=== PATIENT | male | born 1985 | race African-American/Black ===

== ENCOUNTER 2016-11-12 14:38 | Emergency (ER) | payer MEDICARE, OTHER ==
[~2016-11-12] VITALS: Ht 170.2 cm; Wt 88.0 kg
[~2016-11-12 14:38] MED LIST: GEOD20CA PO; HALO10 PO; VIST50CA PO
[2016-11-12 14:40] VITALS: BP 145/80; PULSE 95; TEMP 98.7; O2SAT 98
[2016-11-12 14:58] VITALS: RESP 20
[2016-11-12] MEDS ORDERED: ZYPR20TA PO (16:01)
[2016-11-12] MEDS ORDERED: PROP20TA3 PO (16:01)
[2016-11-12] MEDS ORDERED: HYDR50TA94 PO (16:01)
--- NOTE | 2016-11-12 16:13 | PD ---
HPI Chief Complaint: GI Complaint Time Seen by Provider: 16:12 Travel History International Travel<30 days: No Contact w/Intl Traveler<30days: No Traveled to known affect area: No History of Present Illness HPI 31-year-old male presents to the emergency department for evaluation of blood noted in his stool. This has happened 2 times. Otherwise his stool is brown. He has had some abdominal cramping, it was more severe yesterday but he is not currently having any. He has followed up with his primary care provider who ordered lab work yesterday and a stool sample today. The patient states he has submitted all of this and is just waiting on his results. States that he has had anal sex but not recently. Denies any rectal pain. Denies any fever or chills. Denies any nausea or vomiting. He has no other symptoms to report. PFSH Past Medical History Anxiety: Yes Depression: Yes Diminished Hearing: No Psychiatric: Yes Immunizations Current: Yes Schizophrenia: Yes (paranoid) Social History Alcohol Use: Yes (occassional ) Tobacco Use: No Substance Use: Yes (marijuana) Allergies-Medications (Allergen,Severity, Reaction): Coded Allergies: *MDRO Multi-Drug Resistant Organism (Verified Allergy, Unknown, 09/26/15) MRSA Reported Meds & Prescriptions Reported Meds & Active Scripts Active Bentyl (Dicyclomine HCl) 10 Mg Cap 10 Mg PO TID PRN Reported Propranolol (Propranolol HCl) 20 Mg Tab 20 Mg PO BID Zyprexa (Olanzapine) 20 Mg Tab 20 Mg PO HS Hydroxyzine HCl 50 Mg Tab 100 Mg PO HS Review of Systems Except as stated in HPI: all other systems reviewed are Neg Physical Exam Narrative GENERAL: Well-nourished male patient in no acute distress SKIN: Focused skin assessment warm/dry. HEAD: Atraumatic. Normocephalic. EYES: Pupils equal and round. No scleral icterus. No injection or drainage. ENT: No nasal bleeding or discharge. Mucous membranes pink and moist. NECK: Trachea midline. No JVD. CARDIOVASCULAR: Regular rate and rhythm. No murmur appreciated. RESPIRATORY: No accessory muscle use. Clear to auscultation. Breath sounds equal bilaterally. GASTROINTESTINAL: Abdomen soft, non-tender, nondistended. Hepatic and splenic margins not palpable. RECTAL EXAM: No masses or tenderness, stool is brown. Patient does have an external hemorrhoidal skin tag MUSCULOSKELETAL: No obvious deformities. No clubbing. No cyanosis. No edema. NEUROLOGICAL: Awake and alert. No obvious cranial nerve deficits. Motor grossly within normal limits. Normal speech. PSYCHIATRIC: Appropriate mood and affect; insight and judgment normal. Data Data Last Documented VS Vital Signs Date Time Temp Pulse Resp B/P Pulse Ox O2 Delivery O2 Flow Rate FiO2 11/12/16 14:58 20 11/12/16 14:40 98.7 95 145/80 98 MDM Medical Decision Making Medical Screen Exam Complete: Yes Emergency Medical Condition: Yes Medical Record Reviewed: Yes Differential Diagnosis Hemorrhoidal bleeding versus fissure versus fistula versus colitis versus diverticulitis Narrative Course 31-year-old male presents per department for evaluation. Patient appears without distress. He reports abdominal cramping and 2 episodes of blood in his stool. He has already seen in been evaluated by his primary care provider with lab work sent today as well as a stool sample. Patient does not have acute worsening in symptoms or any acute complaints that would render further emergent workup. I discussed the patient with my attending physician who agrees with this. Patient does not have a positive Hemoccult test and rectal exam as well as abdominal exam benign, except for a hemorrhoidal skin tag. Patient is encouraged to continue follow-up with his primary care provider and see gastroenterology evaluation. He agrees to return immediately with any acute worsening of symptoms. [facility] Point of Care Internal Pos. & Neg. Controls: Passed Fecal Specimen Occult Blood: Negative Diagnosis Primary Impression: Abdominal cramping Additional Impression: Hemorrhoidal skin tag Referrals: Coroner Transport Technician Primary Care Physician Patient Instructions: General Instructions, Hemorrhoids (ED) Additional Instructions: Continue follow-up with your primary care provider Outpatient colonoscopy may be warranted Seek gastroenterology evaluation Return immediately with any acute worsening of symptoms Med/Other Pt SpecificInfo: Prescription(s) given Scripts Dicyclomine (Bentyl)10 Mg Cap10 Mg PO TID PRN (Bowel Management) #15 CAP Ref 0 Prov:Susan Ulloa 11/12/16 Disposition: 01 DISCHARGE HOME Condition: Stable Susan Ulloa Nov 12, 2016 16:12
[2016-11-12] MEDS ORDERED: DICY10 PO (16:27)
== END 2016-11-12 16:47 | disposition home or self-care (01) ==
LOC: NEPD 14:38
DX: R10.9 Unspecified abdominal pain (principal); K64.4 Residual hemorrhoidal skin tags; F41.9 Anxiety disorder, unspecified; F32.9 Major depressive disorder, single episode, unspecified; F20.0 Paranoid schizophrenia
CPT/HCPCS: 99283

== ENCOUNTER 2017-07-12 11:17 | Observation (INO) | payer MEDICARE, OTHER ==
[~2017-07-12] VITALS: Ht 170.2 cm; Wt 82.0 kg
[2017-07-12] VITALS (7 sets, daily range): BP systolic 131–145; BP diastolic 63–87; PULSE 77–92; RESP 16–18; TEMP 97.7–99.1; O2SAT 95–99
[~2017-07-12 11:17] MED LIST changes: +DICY10 PO; -GEOD20CA PO; -HALO10 PO; +HYDR50TA94 PO; +PROP20TA3 PO; -VIST50CA PO; +ZYPR20TA PO
--- NOTE | 2017-07-12 11:36 | PD ---
HPI Chief Complaint: Musculoskeletal Complaint Time Seen by Provider: 11:24 Travel History International Travel<30 days: No Contact w/Intl Traveler<30days: No Traveled to known affect area: No History of Present Illness HPI Patient is a 32-year-old male presenting to emerge from for evaluation of left anterior chest pain. Patient states been on and off for 1 year. Pain occurs mostly at rest when he is sleeping or resting. He states that the pain is a 5 out of 10 and reports it is sore. He denies any accompanying shortness of breath, dizziness, diaphoresis, radiation. He does have occasional pain in the left upper back when the chest pain occurs. Symptom onset is gradual, symptom severity is mild. There are no alleviating or exacerbating factors. Patient has discussed this with his primary doctor and was told it was a muscle issue likely related to sleeping. Patient reports that he smokes occasional marijuana , denies any other illicit drug use. He has a history of paranoid schizophrenia , he is not currently on any medications. PFSH Past Medical History Anxiety: Yes Depression: Yes Diminished Hearing: No Immunizations Current: Yes Schizophrenia: Yes (paranoid) Social History Alcohol Use: No ( ) Tobacco Use: No Substance Use: Yes (marijuana) Allergies-Medications (Allergen,Severity, Reaction): Coded Allergies: *MDRO Multi-Drug Resistant Organism (Verified Allergy, Unknown, 09/26/15) MRSA Reported Meds & Prescriptions Reported Meds & Active Scripts Active Review of Systems Except as stated in HPI: all other systems reviewed are Neg General / Constitutional: No: Fever HENT: No: Headaches, Lightheadedness Cardiovascular: Positive: Chest Pain or Discomfort, No: Palpitations, Tachycardia, Diaphoresis, Dyspnea on exertion, Edema Respiratory: No: Shortness of Breath Gastrointestinal: No: Nausea Musculoskeletal: Positive: Myalgias Neurologic: No: Weakness, Dizziness Physical Exam Narrative GENERAL: Well-developed, well-nourished, alert -Emirati male. Presenting in no acute distress. SKIN: Warm and dry. HEAD: Atraumatic. Normocephalic. EYES: Pupils equal and round. No scleral icterus. No injection or drainage. ENT: No nasal bleeding or discharge. Mucous membranes pink and moist. NECK: Trachea midline. No JVD. CARDIOVASCULAR: Regular rate and rhythm. RESPIRATORY: No accessory muscle use. Clear to auscultation. Breath sounds equal bilaterally. GASTROINTESTINAL: Abdomen soft, non-tender, nondistended. Hepatic and splenic margins not palpable. MUSCULOSKELETAL: Extremities without clubbing, cyanosis, or edema. No obvious deformities. NEUROLOGICAL: Awake and alert. No obvious cranial nerve deficits. Motor grossly within normal limits. Five out of 5 muscle strength in the arms and legs. Normal speech. PSYCHIATRIC: Appropriate mood and affect; insight and judgment normal. Data Data Last Documented VS Vital Signs Date Time Temp Pulse Resp B/P (MAP) Pulse Ox O2 Delivery O2 Flow Rate FiO2 07/12/17 11:21 99.1 92 16 145/85 (105) 98 Orders Orders Electrocardiogram (07/12/17 11:31) Ckmb (Isoenzyme) Profile (07/12/17 11:31) Complete Blood Count With Diff (07/12/17 11:31) Comprehensive Metabolic Panel (07/12/17 11:31) Magnesium (Mg) (07/12/17 11:31) Prothrombin Time / Inr (Pt) (07/12/17 11:31) Act Partial Throm Time (Ptt) (07/12/17 11:31) Troponin I (07/12/17 11:31) Lipase (07/12/17 11:31) Chest, Single Ap (07/12/17 11:31) Ecg Monitoring (07/12/17 11:31) Iv Access Insert/Monitor (07/12/17 11:31) Oximetry (07/12/17 11:31) Sodium Chloride 0.9% Flush (Ns Flush) (07/12/17 11:45) CKMB (07/12/17 11:45) CKMB% (07/12/17 11:45) Admit Order (Ed Use Only) (07/12/17 13:21) Labs Laboratory Tests Test 07/12/17 11:45 White Blood Count 7.2 TH/MM3 Red Blood Count 5.16 MIL/MM3 Hemoglobin 15.5 GM/DL Hematocrit 45.2 % Mean Corpuscular Volume 87.6 FL Mean Corpuscular Hemoglobin 30.0 PG Mean Corpuscular Hemoglobin Concent 34.2 % Red Cell Distribution Width 13.7 % Platelet Count 213 TH/MM3 Mean Platelet Volume 8.3 FL Neutrophils (%) (Auto) 48.8 % Lymphocytes (%) (Auto) 42.4 % Monocytes (%) (Auto) 7.3 % Eosinophils (%) (Auto) 1.0 % Basophils (%) (Auto) 0.5 % Neutrophils # (Auto) 3.5 TH/MM3 Lymphocytes # (Auto) 3.0 TH/MM3 Monocytes # (Auto) 0.5 TH/MM3 Eosinophils # (Auto) 0.1 TH/MM3 Basophils # (Auto) 0.0 TH/MM3 CBC Comment DIFF FINAL Differential Comment Prothrombin Time 10.9 SEC Prothromb Time International Ratio 1.1 RATIO Activated Partial Thromboplast Time 28.2 SEC Blood Urea Nitrogen 10 MG/DL Creatinine 0.98 MG/DL Random Glucose 83 MG/DL Total Protein 8.4 GM/DL Albumin 4.1 GM/DL Calcium Level 9.6 MG/DL Magnesium Level 2.3 MG/DL Alkaline Phosphatase 115 U/L Aspartate Amino Transf (AST/SGOT) 19 U/L Alanine Aminotransferase (ALT/SGPT) 46 U/L Total Bilirubin 0.5 MG/DL Sodium Level 139 MEQ/L Potassium Level 4.3 MEQ/L Chloride Level 104 MEQ/L Carbon Dioxide Level 27.1 MEQ/L Anion Gap 8 MEQ/L Estimat Glomerular Filtration Rate 106 ML/MIN Total Creatine Kinase 347 U/L Creatine Kinase MB 1.4 NG/ML Creatine Kinase MB % 0.4 % Troponin I LESS THAN 0.02 NG/ML Lipase 81 U/L MDM Medical Decision Making Medical Screen Exam Complete: Yes Emergency Medical Condition: Yes Medical Record Reviewed: Yes Interpretation(s) Last Impressions Chest X-Ray 07/12/17 1131 Signed Impressions: Service Date/Time: Wednesday, July 12, 2017 11:36 - CONCLUSION: Normal examination. Eula Anderson MD Laboratory Tests Test 07/12/17 11:45 White Blood Count 7.2 TH/MM3 Red Blood Count 5.16 MIL/MM3 Hemoglobin 15.5 GM/DL Hematocrit 45.2 % Mean Corpuscular Volume 87.6 FL Mean Corpuscular Hemoglobin 30.0 PG Mean Corpuscular Hemoglobin Concent 34.2 % Red Cell Distribution Width 13.7 % Platelet Count 213 TH/MM3 Mean Platelet Volume 8.3 FL Neutrophils (%) (Auto) 48.8 % Lymphocytes (%) (Auto) 42.4 % Monocytes (%) (Auto) 7.3 % Eosinophils (%) (Auto) 1.0 % Basophils (%) (Auto) 0.5 % Neutrophils # (Auto) 3.5 TH/MM3 Lymphocytes # (Auto) 3.0 TH/MM3 Monocytes # (Auto) 0.5 TH/MM3 Eosinophils # (Auto) 0.1 TH/MM3 Basophils # (Auto) 0.0 TH/MM3 CBC Comment DIFF FINAL Differential Comment Prothrombin Time 10.9 SEC Prothromb Time International Ratio 1.1 RATIO Activated Partial Thromboplast Time 28.2 SEC Blood Urea Nitrogen 10 MG/DL Creatinine 0.98 MG/DL Random Glucose 83 MG/DL Total Protein 8.4 GM/DL Albumin 4.1 GM/DL Calcium Level 9.6 MG/DL Magnesium Level 2.3 MG/DL Alkaline Phosphatase 115 U/L Aspartate Amino Transf (AST/SGOT) 19 U/L Alanine Aminotransferase (ALT/SGPT) 46 U/L Total Bilirubin 0.5 MG/DL Sodium Level 139 MEQ/L Potassium Level 4.3 MEQ/L Chloride Level 104 MEQ/L Carbon Dioxide Level 27.1 MEQ/L Anion Gap 8 MEQ/L Estimat Glomerular Filtration Rate 106 ML/MIN Total Creatine Kinase 347 U/L Creatine Kinase MB 1.4 NG/ML Creatine Kinase MB % 0.4 % Troponin I LESS THAN 0.02 NG/ML Lipase 81 U/L Vital Signs Date Time Temp Pulse Resp B/P (MAP) Pulse Ox O2 Delivery O2 Flow Rate FiO2 07/12/17 11:21 99.1 92 16 145/85 (105) 98 Differential Diagnosis ACS versus [place] versus chest wall pain versus costochondritis versus radiculopathy versus other Narrative Course Patient is a well-appearing 32-year-old male presenting for evaluation of left anterior chest wall pain that has been intermittent for the last year. Patient' s vital signs are stable, labs and imaging ordered and pending. IV access established, patient placed on telemetry monitoring continuous pulse oximetry. EKG shows normal sinus rhythm with J-point elevation. This was reviewed by my attending physician. Labs reviewed CK slightly elevated otherwise no acute abnormalities. Discussed with my attending, patient will be placed in REPRODUCTION ARTIST for obs. Pt agreeable. Orders placed. Pt resting comfortably. Diagnosis Primary Impression: Chest pain Qualified Codes: R07.9 - Chest pain, unspecified Admitting Information Admitting Physician Requests: Observation Condition: Stable Lynn Rice Jul 12, 2017 11:36
[2017-07-12] MEDS ORDERED: SODIUM CHLORIDE 0.9% FLUSH 10 ML FLUSH IVF PRN (11:45)
--- NOTE | 2017-07-12 11:56 | RADRPT ---
EXAM DATE/TIME: 07/12/2017 11:36 [facility] COMPARISON: No previous studies available for comparison. INDICATIONS : Left sided chest pain. MEDICAL HISTORY : Heart murmur. SURGICAL HISTORY : None. ENCOUNTER: Initial ACUITY: >1 year PAIN SCORE: 4/10 LOCATION: Left chest FINDINGS: A single view of the chest demonstrates the lungs to be symmetrically aerated without evidence of mas s, infiltrate or effusion. The cardiomediastinal contours are unremarkable. Osseous structures are intact. CONCLUSION: Normal examination. Eula Anderson MD on July 12, 2017 at 11:54 Board Certified Radiologist. This report was verified electronically.
[2017-07-12 12:34] LABS: AUTOMATED NEUTROPHIL # 3.5 TH/MM3 (1.8-7.7); BASOPHIL % 0.5 % (0.0-2.0); EOSINOPHIL # 0.1 TH/MM3 (0-0.4); HEMATOCRIT 45.2 % (39.0-51.0); HEMOGLOBIN 15.5 GM/DL (13.0-17.0); LYMPH % 42.4 % (9.0-44.0); MEAN CELL VOLUME 87.6 FL (80.0-100.0); MEAN CORPUSCULAR HGB CONC 34.2 % (32.0-36.0); MEAN PLATELET VOLUME 8.3 FL (7.0-11.0); MONO % 7.3 % (0.0-8.0); MONOCYTE # 0.5 TH/MM3 (0-0.9); NEUT % 48.8 % (16.0-70.0); PLATELET COUNT 213 TH/MM3 (150-450); RED BLOOD COUNT 5.16 MIL/MM3 (4.50-5.90); RED CELL DISTRIBUTION WIDTH 13.7 % (11.6-17.2); WHITE BLOOD COUNT 7.2 TH/MM3 (4.0-11.0)
[2017-07-12 12:42] LABS: INTERNATIONAL NORMALIZED RATIO 1.1 RATIO; PROTHROMBIN TIME - PATIENT 10.9 SEC (9.8-11.6)
[2017-07-12 12:57] LABS: ALBUMIN 4.1 GM/DL (3.4-5.0); ALT (GPT) 46 U/L (12-78); BICARBONATE 27.1 MEQ/L (21.0-32.0); BLOOD UREA NITROGEN 10 MG/DL (7-18); CALCIUM 9.6 MG/DL (8.5-10.1); CHLORIDE 104 MEQ/L (98-107); CREATININE 0.98 MG/DL (0.60-1.30); GLOMERULAR FILTRATION RATE 106 ML/MIN (>89); GLUCOSE,RANDOM 83 MG/DL (74-106); MAGNESIUM 2.3 MG/DL (1.5-2.5); SODIUM (NA) 139 MEQ/L (136-145)
[2017-07-12 13:02] LABS: ALKALINE PHOSPHATASE 115 U/L (45-117); AST (GOT) 19 U/L (15-37); TOTAL BILIRUBIN ADULT 0.5 MG/DL (0.2-1.0); TOTAL PROTEIN 8.4 GM/DL (6.4-8.2); TROPONIN I LESS THAN 0.02 NG/ML (0.02-0.05)
[2017-07-12] MEDS ORDERED: ACETAMINOPHEN/HYDROcodone 325 MG/7.5 MG TAB PO PRN (15:00)
[2017-07-12] MEDS ORDERED: ONDANSETRON HCL 4 MG/2 ML VIAL IV PUSH PRN (15:00)
[2017-07-12] MEDS ORDERED: ACETAMINOPHEN 500 MG CPLT PO PRN (15:00)
--- NOTE | 2017-07-12 15:14 | HHI.HP ---
HPI Primary Care Physician Unknown Chief Complaint Chest pain History of Present Illness This is a 32-year-old male that presents to ED via private vehicle with complaint of intermittent left-sided chest discomfort for greater than a year. States he has on average 1-2 times a month. Describes it as a soreness but on the inside of his chest. When it occurs will usually last a couple days. Found nothing in particular to bring on the discomfort. Nothing seems to worsen or improve it when he has it. Denies recent illnesses. Denies fevers or chills. Has history of schizophrenia but states he has not taken meds for 6 months. Denies hallucinations. Denies suicidal or homicidal thoughts. Review of Systems General: Patient denies fevers, chills, and recent travel. HEENT: Patient denies headache, sore throat, difficulty swallowing. Cardiovascular: Has the chest discomfort as mentioned above. Denies sensation of heart beating rapidly or irregularly. No syncope. Denies diaphoresis. Respiratory: Denies shortness of breath or inspirational chest discomfort. Denies coughing wheezing or hemoptysis. GI: Patient denies nausea, vomiting, diarrhea, abdominal pain, bloody stools. Musculoskeletal: Patient denies joint pain or edema. Denies calf pain or edema. Neurovascular: Patient denies numbness, tingling, weakness in extremities. Denies headache. Endocrine: Denies polyuria and polydipsia. Hematologic: Denies easy bruising. Skin: Denies rash or itching. Past Family Social History Allergies: Coded Allergies: *MDRO Multi-Drug Resistant Organism (Verified Allergy, Unknown, 09/26/15) MRSA Past Medical History Schizophrenia. Denies hypertension, hyperlipidemia, diabetes, and known CAD. Cigar abuse with marijuana. Past Surgical History Denies. Reported Medications Reported Meds & Active Scripts Active Active Ordered Medications Current Medications Medications (Trade) Dose Ordered Sig/Elena Route Start Time Stop Time Status Last Admin (NS Flush) 2 ml UNSCH PRN IVF 07/12/17 11:45 (Tylenol) 500 mg Q4H PRN PO 07/12/17 15:00 ([place] 7.5-325 Mg) 1 tab Q4H PRN PO 07/12/17 15:00 (Zofran Inj) 4 mg Q6H PRN IV PUSH 07/12/17 15:00 (Aspirin) 325 mg DAILY PO 07/13/17 09:00 Family History Patient is adopted. Social History Smokes 2-3 cigars laced with marijuana 2-3 times a week. Denies alcohol. Denies other illicit drug use. Physical Exam Vital Signs Vital Signs Date Time Temp Pulse Resp B/P (MAP) Pulse Ox O2 Delivery O2 Flow Rate FiO2 07/12/17 14:34 98.2 77 17 144/87 (106) 95 07/12/17 14:07 72 18 131/78 (95) 99 07/12/17 11:21 99.1 92 16 145/85 (105) 98 Physical Exam GENERAL: This is a well-nourished, well-developed patient, in no apparent distress. Patient speaks in clear complete sentences. Patient is pleasant. HEENT: Head is atraumatic and normocephalic. Neck is supple without lymphadenopathy and trachea is midline. No JVD or carotid bruits. CARDIOVASCULAR: Regular rate and rhythm without murmurs, gallops, or rubs. RESPIRATORY: Clear to auscultation. Breath sounds equal bilaterally. No wheezes , rales, or rhonchi. Left chest wall is tender. No use of accessory muscles. GASTROINTESTINAL: Abdomen is nontender, nondistended. Abdomen soft. No obvious pulsatile mass or bruit. No CVA tenderness. Strong femoral pulses bilaterally. Normal bowel sounds in all quadrants. MUSCULOSKELETAL: Patient is moving upper and lower extremities freely. No calf tenderness or edema, no Homans sign. Strong pulses in upper and lower extremities. NEUROLOGICAL: Patient is alert and oriented. Cranial nerves 2-12 are grossly intact. No focal deficits and speech is clear. SKIN: No rash and turgor is normal. Laboratory Laboratory Tests Test 07/12/17 11:45 White Blood Count 7.2 Red Blood Count 5.16 Hemoglobin 15.5 Hematocrit 45.2 Mean Corpuscular Volume 87.6 Mean Corpuscular Hemoglobin 30.0 Mean Corpuscular Hemoglobin Concent 34.2 Red Cell Distribution Width 13.7 Platelet Count 213 Mean Platelet Volume 8.3 Neutrophils (%) (Auto) 48.8 Lymphocytes (%) (Auto) 42.4 Monocytes (%) (Auto) 7.3 Eosinophils (%) (Auto) 1.0 Basophils (%) (Auto) 0.5 Neutrophils # (Auto) 3.5 Lymphocytes # (Auto) 3.0 Monocytes # (Auto) 0.5 Eosinophils # (Auto) 0.1 Basophils # (Auto) 0.0 CBC Comment DIFF FINAL Differential Comment Prothrombin Time 10.9 Prothromb Time International Ratio 1.1 Activated Partial Thromboplast Time 28.2 Blood Urea Nitrogen 10 Creatinine 0.98 Random Glucose 83 Total Protein 8.4 Albumin 4.1 Calcium Level 9.6 Magnesium Level 2.3 Alkaline Phosphatase 115 Aspartate Amino Transf (AST/SGOT) 19 Alanine Aminotransferase (ALT/SGPT) 46 Total Bilirubin 0.5 Sodium Level 139 Potassium Level 4.3 Chloride Level 104 Carbon Dioxide Level 27.1 Anion Gap 8 Estimat Glomerular Filtration Rate 106 Total Creatine Kinase 347 Creatine Kinase MB 1.4 Creatine Kinase MB % 0.4 Troponin I LESS THAN 0.02 Lipase 81 Result Diagram: 07/12/17 1145 07/12/17 1145 Imaging Last 48 hours Impressions Chest X-Ray 07/12/17 1131 Signed Impressions: Service Date/Time: Wednesday, July 12, 2017 11:36 - CONCLUSION: Normal examination. Eula Anderson MD Course Initial EKG is sinus rhythm with generalized ST elevation pattern of likely repolarization. Caprini VTE Risk Assessment Caprini VTE Risk Assessment: No/Low Risk (score <= 1) Caprini Risk Assessment Model Point Value = 1 Point Value = 2 Point Value = 3 Point Value = 5 Age 41-60 Minor surgery BMI > 25 kg/m2 Swollen legs Varicose veins or History of unexplained or recurrent spontaneous Oral contraceptives or hormone replacement Sepsis (< 1 month) Serious lung disease, including pneumonia (< 1 month) Abnormal pulmonary function Acute myocardial infarction Congestive heart failure (< 1 month) History of inflammatory bowel disease Medical patient at bed rest Age 61-74 Arthroscopic surgery Major open surgery (> 45 min) Laparoscopic surgery (> 45 min) Malignancy Confined to bed (> 72 hours) Immobilizing plaster cast Central venous access Age >= 75 History of VTE Family history of VTE Factor V Leiden Prothrombin [id number] Lupus anticoagulant Anticardiolipin antibodies Elevated serum homocysteine Heparin-induced thrombocytopenia Other congenital or acquired thrombophilia Stroke (< 1 month) Elective arthroplasty Hip, pelvis, or leg fracture Acute spinal cord injury (< 1 month) Prophylaxis Regimen Total Risk Factor Score Risk Level Prophylaxis Regimen 0-1 Low Early ambulation 2 Moderate Order ONE of the following: *Sequential Compression Device (SCD) *Heparin 5000 units SQ BID 3-4 Higher Order ONE of the following medications: *Heparin 5000 units SQ TID *Enoxaparin/Lovenox 40 mg SQ daily (WT < 150 kg, CrCl > 30 mL/min) *Enoxaparin/Lovenox 30 mg SQ daily (WT < 150 kg, CrCl > 10-29 mL/min) *Enoxaparin/Lovenox 30 mg SQ BID (WT < 150 kg, CrCl > 30 mL/min) AND/OR *Sequential Compression Device (SCD) 5 or more Highest Order ONE of the following medications: *Heparin 5000 units SQ TID (Preferred with Epidurals) *Enoxaparin/Lovenox 40 mg SQ daily (WT < 150 kg, CrCl > 30 mL/min) *Enoxaparin/Lovenox 30 mg SQ daily (WT < 150 kg, CrCl > 10-29 mL/min) *Enoxaparin/Lovenox 30 mg SQ BID (WT < 150 kg, CrCl > 30 mL/min) AND *Sequential Compression Device (SCD) Assessment and Plan Assessment and Plan * Atypical chest pain: Patient has had first set of cardiac enzymes and EKGs. He will be seen by Dr. Velasco cardiology in the [facility]. He will undergo a Pardeep protocol ETT and of nonischemic will be discharged home with instructions to follow-up with PCP. Return to ED for interval issues. * Tobacco abuse: Patient is a counselor reports of smoking cessation. He also has been advised to longer use marijuana. Patient is stable at this time. He is agreeable to this plan. Christian Sinha Jul 12, 2017 15:14
[2017-07-12] MEDS ORDERED: SODIUM CHLOR 0.9% 1000 ML INJ 1,000 ML IV SCH (15:57)
--- NOTE | 2017-07-12 17:01 | TR ---
Date Performed: 07/12/2017 Time Performed: 15:05:55 DOCTOR: Malachi Velasco DRUG LIST: CLINICAL HISTORY: REASON FOR TEST: Chest pain REASON FOR ENDING: OBSERVATION: CONCLUSION: walked 9.41min,no chest pain, developed wide complex probable V tach per PA for 30 s ec or more ,then non sustained V tach of 3 to 6 beats for 1 to two minutes,nosymtoms. ST elevation of early repol with exercise.Pt to be admitted. COMMENTS:
[2017-07-12 17:07] LABS: MAGNESIUM 2.3 MG/DL (1.5-2.5)
--- NOTE | 2017-07-12 17:07 | EKG ---
Date Performed: 07/12/2017 Time Performed: 14:18:32 PTAGE: 32 years EKG: SINUS BRADYCARDIA ST ELEVATION, PROBABLY EARLY REPOLARIZATION NONSPECIFIC ST & T-WAVE ABNOR MALITY BORDERLINE ECG PREVIOUS TRACING : 07/12/2017 11.36 Since previous tracing, no significant change noted DOCTOR: Malachi Velasco Interpretating Date/Time 07/12/2017 17:05:41
[2017-07-12 17:15] LABS: TROPONIN I LESS THAN 0.02 NG/ML (0.02-0.05)
--- NOTE | 2017-07-12 17:18 | MB ---
cc: Bandar Kang MD DATE OF CONSULT: 07/12/2017 REASON FOR CONSULTATION: Chest pain, possible ventricular tachycardia after a treadmill test. HISTORY OF PRESENT ILLNESS: The patient is a 32-year-old male with a history of schizophrenia who presented to the hospital with chronic chest pain. The patient states for the past 8 months, he has sporadic, overall infrequent episodes of left upper chest discomfort described as a "deep soreness", sometimes lasting a few days in a constant fashion. There is usually no associated shortness of breath, nausea or diaphoresis. Exertion does not seem to exacerbate or worsen the chest discomfort. His most recent episode of chest pain began about 4 days ago. The patient underwent an exercise treadmill test today and as the test was stopped, he developed salvos of wide complex tachycardia. The patient states he may have developed some chest discomfort in his left upper chest on the treadmill, although different in quality from his usual symptomatology. He denies any dizziness, except rarely when standing up quickly. He also denies syncope, near syncope, fevers, headache, pedal edema, or paroxysmal nocturnal dyspnea. Except for occasional marijuana use, he denies drug abuse. PAST MEDICAL HISTORY: None. MEDICATIONS AT HOME: None. ALLERGIES: NO KNOWN DRUG ALLERGIES. FAMILY HISTORY: Unknown as the patient is adopted. SOCIAL HISTORY: The patient denies tobacco or alcohol abuse. He smokes occasional marijuana. REVIEW OF SYSTEMS: As in the history of present illness, otherwise negative or noncontributory. He also denies headache, visual changes, abdominal pain, melena, dyspepsia, bright red blood per rectum, cough, and wheezing. PHYSICAL EXAMINATION: VITAL SIGNS: Blood pressure 144/87 with a pulse of 77, respirations 17. GENERAL: He is a well-developed, well-nourished male in no acute distress. NECK: Jugular venous pressure is normal. Carotid pulses are 2+ bilaterally and without bruits. CHEST: Reveals clear lungs andrew. CARDIAC: He has a regular rhythm and rate without S3, S4, or murmur. ABDOMEN: He has a soft, nontender abdomen. Bowel sounds are present. There is no definite hepatosplenomegaly. EXTREMITIES: Reveals no clubbing, cyanosis, or edema. EKG from today at 11:36 a.m. shows sinus rhythm, diffuse ST elevation, consider early repolarization, cannot rule out acute pericarditis. LABORATORY DATA: Includes normal CBC, normal basic metabolic profile. CK 347 with 0.4 percent MB fraction. Troponin less than 0.02. IMAGING STUDIES: Chest x-ray shows no acute disease. IMPRESSION: Exceedingly atypical chest pains, post-stress test salvos of wide complex tachycardia in this 32-year-old male with no major past medical history. His chest pains for the past several months are exceedingly atypical for ischemia, sometimes lasting up to a few days in a constant fashion without any relationship whatsoever to exertion, occurring very sporadically. He has no risk factors for coronary artery disease. No diagnostic ST segment changes were seen on his exercise treadmill test today. With respect to the wide complex tachycardia salvos seen at the tail end of his stress test, there may be aberrantly conducted supraventricular tachyarrhythmia, although it is difficult to exclude ventricular tachycardia. He has no signs or symptoms of underlying cardiomyopathy. He denies any drug abuse. The patient was asymptomatic with these salvos of wide complex tachycardia. RECOMMENDATIONS: 1. Check a Lexiscan nuclear stress test to further evaluate his atypical chest pains. 2. Check a 2-D echo to assess his left ventricular function. 3. If the echo and nuclear stress test are unremarkable, consider empiric therapy with beta jodee. MD MIGUEL A Toro/AZRA , 04:58 PM , 05:16 PM TIM
--- NOTE | 2017-07-12 18:03 | EKG ---
Date Performed: 07/12/2017 Time Performed: 11:36:37 PTAGE: 32 years EKG: Sinus rhythm ST ELEVATION ANTEROLATERALLY AND IN LEADS I, II AND aVF, MOST LIKELY DUE TO EARLY REPOLARIZATION. CA NNOT EXCLUDE PERICARDITIS OR OTHER INJURY ALTHOUGH LESS LIKELY. ABNORMAL ECG NO PREVIOUS TRACING DOCTOR: Malachi Velasco Interpretating Date/Time 07/12/2017 18:01:42
[2017-07-13] VITALS (7 sets, daily range): BP systolic 116–138; BP diastolic 53–86; PULSE 52–75; RESP 14–18; TEMP 97.4–98.6; O2SAT 96–99
[2017-07-13] MEDS ORDERED: REGADENOSON INJ 0.4 MG/5 ML SYR ONE (08:36)
--- NOTE | 2017-07-13 10:00 | RADRPT ---
EXAM DATE/TIME: 07/13/2017 08:31 [facility] COMPARISON: No previous studies available for comparison. INDICATIONS : Left chest pain. DOSE: 27.2 mCi Tc99m Myoview at stress. 8.3 mCi Tc99m Myoview at rest. 0.4 mg Lexiscan STRESS SYMPTOMS: Lightheadedness. EJECTION FRACTION: 69% MEDICAL HISTORY : Hypercholesterolemia. Hypertension. Schizophrenia. SURGICAL HISTORY : None. ENCOUNTER: Initial ACUITY: 1 week PAIN SCALE: 4/10 LOCATION: Left chest TECHNIQUE: The patient underwent pharmacologic stress with infusion of prescribed dose. Continuous ECG tracing was monitored during stress. Gated SPECT imaging was performed after stress and conventional SPECT i maging was performed at rest. The examination was performed on a SPECT/CT scanner, both attenuation and non-corrected datasets were reviewed. FINDINGS: DISTRIBUTION: The maximum perfused segment at stress is in the septal wall. PERFUSION STUDY: The pattern of perfusion at stress is within normal limits. GATED STUDY: There is intact wall motion and thickening without hypokinetic or dyskinetic segments. CONCLUSION: No evidence of fixed or reversible perfusion defects. No wall motion abnormality. Normal exam.. RISK CATEGORY: Low risk. Eula Anderson MD on July 13, 2017 at 9:57 Board Certified Radiologist. This report was verified electronically.
[2017-07-13] MEDS: ASPIRIN 325 MG TAB PO SCH (10:23)
--- NOTE | 2017-07-13 10:34 | PD.CARD.PN ---
Subjective Subjective Remarks No CP, dyspnea, palpitations, dizziness. Objective Medications Item Value Date Time Aspirin 325 mg 07/13/17 0900 (Aspirin) DAILY/PO 07/13/17 1023 Current Medications Medications (Trade) Dose Ordered Sig/Elena Route Start Time Stop Time Status Last Admin (NS Flush) 2 ml UNSCH PRN IVF 07/12/17 11:45 07/13/17 10:25 (Tylenol) 500 mg Q4H PRN PO 07/12/17 15:00 ([place] 7.5-325 Mg) 1 tab Q4H PRN PO 07/12/17 15:00 (Zofran Inj) 4 mg Q6H PRN IV PUSH 07/12/17 15:00 (Aspirin) 325 mg DAILY PO 07/13/17 09:00 07/13/17 10:23 Vital Signs / I&O Vital Signs Date Time Temp Pulse Resp B/P (MAP) Pulse Ox O2 Delivery O2 Flow Rate FiO2 07/13/17 04:13 97.5 74 16 116/53 (74) 96 07/12/17 23:19 97.7 79 16 134/63 (86) 95 07/12/17 21:37 99 07/12/17 20:29 98.4 78 16 135/75 (95) 96 07/12/17 16:00 98.5 89 18 140/77 (98) 96 07/12/17 14:34 98.2 77 17 144/87 (106) 95 07/12/17 14:07 72 18 131/78 (95) 99 07/12/17 11:21 99.1 92 16 145/85 (105) 98 I/O 07/12/17 07/12/17 07/12/17 07/13/17 07/13/17 07/13/17 07:00 15:00 23:00 07:00 15:00 23:00 Intake Total 500 ml 360 ml Balance 500 ml 360 ml Intake Oral 500 ml 360 ml # Voids 2 2 Physical Exam GENERAL: Well developed, well nourished. No acute distress. HEENT: Jugular venous pressure is normal. CHEST: Lungs clear to auscultation bilaterally. Unlabored respiratory effort. CARDIAC: Regular rate and rhythm without S3, S4, or murmur. ABDOMEN: Soft, nontender, no hepatosplenomegaly. Bowel sounds present. EXTREMITIES: No clubbing, cyanosis, or edema. Laboratory Laboratory Tests Test 07/12/17 11:45 07/12/17 16:20 White Blood Count 7.2 TH/MM3 Red Blood Count 5.16 MIL/MM3 Hemoglobin 15.5 GM/DL Hematocrit 45.2 % Mean Corpuscular Volume 87.6 FL Mean Corpuscular Hemoglobin 30.0 PG Mean Corpuscular Hemoglobin Concent 34.2 % Red Cell Distribution Width 13.7 % Platelet Count 213 TH/MM3 Mean Platelet Volume 8.3 FL Neutrophils (%) (Auto) 48.8 % Lymphocytes (%) (Auto) 42.4 % Monocytes (%) (Auto) 7.3 % Eosinophils (%) (Auto) 1.0 % Basophils (%) (Auto) 0.5 % Neutrophils # (Auto) 3.5 TH/MM3 Lymphocytes # (Auto) 3.0 TH/MM3 Monocytes # (Auto) 0.5 TH/MM3 Eosinophils # (Auto) 0.1 TH/MM3 Basophils # (Auto) 0.0 TH/MM3 CBC Comment DIFF FINAL Differential Comment Prothrombin Time 10.9 SEC Prothromb Time International Ratio 1.1 RATIO Activated Partial Thromboplast Time 28.2 SEC Blood Urea Nitrogen 10 MG/DL Creatinine 0.98 MG/DL Random Glucose 83 MG/DL Total Protein 8.4 GM/DL Albumin 4.1 GM/DL Calcium Level 9.6 MG/DL Magnesium Level 2.3 MG/DL 2.3 MG/DL Alkaline Phosphatase 115 U/L Aspartate Amino Transf (AST/SGOT) 19 U/L Alanine Aminotransferase (ALT/SGPT) 46 U/L Total Bilirubin 0.5 MG/DL Sodium Level 139 MEQ/L Potassium Level 4.3 MEQ/L Chloride Level 104 MEQ/L Carbon Dioxide Level 27.1 MEQ/L Anion Gap 8 MEQ/L Estimat Glomerular Filtration Rate 106 ML/MIN Total Creatine Kinase 347 U/L 326 U/L Creatine Kinase MB 1.4 NG/ML 1.0 NG/ML Creatine Kinase MB % 0.4 % 0.3 % Troponin I LESS THAN 0.02 NG/ML LESS THAN 0.02 NG/ML Lipase 81 U/L Thyroid Stimulating Hormone 3rd Gen 0.736 uIU/ML Imaging Last 24 hours Impressions Chest X-Ray 07/12/17 1131 Signed Impressions: Service Date/Time: Wednesday, July 12, 2017 11:36 - CONCLUSION: Normal examination. Eula Anderson MD Assessment and Plan Problem List: (1) Chest pain ICD Codes: R07.9 - Chest pain, unspecified Status: Chronic Plan: Stable overnight. Nuclear stress test this morning normal. (2) Wide QRS ventricular tachycardia ICD Codes: I47.2 - Ventricular tachycardia Status: Acute Plan: Monitoring uneventful overnight. Patient without history of syncope. Echo pending. Recommend await echo. If echo normal, recommend discharge on metoprolol succinate 50 mg daily. Code Status full code Discussed Condition With patient Problem Qualifiers (1) Chest pain: Qualified Codes: R07.9 - Chest pain, unspecified Bandar Kang MD Jul 13, 2017 10:34
--- NOTE | 2017-07-13 11:47 | HHI.PR ---
Subjective Remarks The patient is in bed he appears in not acute distress. Says no chest pain overnight. No palpitations, lightheadedness, diaphoresis. No nausea vomiting no diarrhea or constipation. He is ambulating to the bathroom. He said he felt lightheaded while ambulating. Objective Vitals Vital Signs Date Time Temp Pulse Resp B/P (MAP) Pulse Ox O2 Delivery O2 Flow Rate FiO2 07/13/17 04:13 97.5 74 16 116/53 (74) 96 07/12/17 23:19 97.7 79 16 134/63 (86) 95 07/12/17 21:37 99 07/12/17 20:29 98.4 78 16 135/75 (95) 96 07/12/17 16:00 98.5 89 18 140/77 (98) 96 07/12/17 14:34 98.2 77 17 144/87 (106) 95 07/12/17 14:07 72 18 131/78 (95) 99 I/O 07/12/17 07/12/17 07/12/17 07/13/17 07/13/17 07/13/17 07:00 15:00 23:00 07:00 15:00 23:00 Intake Total 500 ml 360 ml Balance 500 ml 360 ml Intake Oral 500 ml 360 ml # Voids 2 2 Result Diagram: 07/12/17 1145 07/12/17 1145 Imaging Last Impressions Chest X-Ray 07/12/17 1131 Signed Impressions: Service Date/Time: Wednesday, July 12, 2017 11:36 - CONCLUSION: Normal examination. Eula Anderson MD Objective Remarks GENERAL: This is a well-nourished, well-developed patient, in no apparent distress. Patient speaks in clear complete sentences. Patient is pleasant. HEENT: Head is atraumatic and normocephalic. Neck is supple without lymphadenopathy and trachea is midline. No JVD or carotid bruits. CARDIOVASCULAR: Regular rate and rhythm without murmurs, gallops, or rubs. RESPIRATORY: Clear to auscultation. Breath sounds equal bilaterally. No wheezes , rales, or rhonchi. Left chest wall is tender. No use of accessory muscles. GASTROINTESTINAL: Abdomen is nontender, nondistended. Abdomen soft. No obvious pulsatile mass or bruit. No CVA tenderness. Strong femoral pulses bilaterally. Normal bowel sounds in all quadrants. MUSCULOSKELETAL: Patient is moving upper and lower extremities freely. No calf tenderness or edema, no Homans sign. Strong pulses in upper and lower extremities. NEUROLOGICAL: Patient is alert and oriented. Cranial nerves 2-12 are grossly intact. No focal deficits and speech is clear. SKIN: No rash and turgor is normal. A/P Assessment and Plan Atypical chest pain: Patient has had first set of cardiac enzymes and EKGs.. Had abnormal stress test noted V tach while having stress test. Plan for lexiscan. Plan for 2D echo. 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 He also has been advised to longer use marijuana. Patient is stable at this time. He is agreeable to this plan. Discharge patient if echo and Lexiscan was normal. Elba Hebert MD Jul 13, 2017 11:47
[2017-07-13] MEDS ORDERED: METO1TAB9 PO (13:40)
[2017-07-14 07:49] VITALS: BP 123/70; PULSE 83; RESP 20; TEMP 98; O2SAT 96
--- NOTE | 2017-07-14 08:00 | HHI.DCPOC ---
Discharge Care Plan Diagnosis: (1) Wide QRS ventricular tachycardia (2) Chest pain Your Health Problems Are: Chest Pain Exercise Tolerance Goals to Promote Your Health * To prevent worsening of your condition and complications * To maintain your health at the optimal level Directions to Meet Your Goals Take your medications as prescribed Follow your dietary instruction Follow activity as directed Keep your appointments as scheduled Take your immunizations and boosters as scheduled If your symptoms worsen call your PCP, if no PCP go to Urgent Care Center or Emergency Room Smoking is Dangerous to Your Health. Avoid second hand smoke Call the 24-hour hour crisis hotline for domestic abuse at Josy Mandujano Jul 14, 2017 08:00
--- NOTE | 2017-07-14 08:10 | HHI.DS ---
Discharge Summary Admission Date Jul 12, 2017 at 13:24 Discharge Date: Jul 14, 2017 Admitting Diagnosis CHEST PAIN (1) Wide QRS ventricular tachycardia ICD Code: I47.2 - Ventricular tachycardia Status: Acute (2) Abdominal cramping ICD Code: R10.9 - Unspecified abdominal pain Status: Acute (3) Schizoaffective disorder ICD Code: F25.9 - Schizoaffective disorder, unspecified Status: Acute Procedures none Brief History - From Admission This is a 32-year-old male that presents to ED via private vehicle with complaint of intermittent left-sided chest discomfort for greater than a year. States he has on average 1-2 times a month. Describes it as a soreness but on the inside of his chest. When it occurs will usually last a couple days. Found nothing in particular to bring on the discomfort. Nothing seems to worsen or improve it when he has it. Denies recent illnesses. Denies fevers or chills. Has history of schizophrenia but states he has not taken meds for 6 months. Denies hallucinations. Denies suicidal or homicidal thoughts. CBC/BMP: 07/12/17 1145 07/12/17 1145 Significant Findings Laboratory Tests Test 07/12/17 11:45 07/12/17 16:20 Total Protein 8.4 GM/DL (6.4-8.2) Total Creatine Kinase 347 U/L (39-308) 326 U/L (39-308) Troponin I LESS THAN 0.02 NG/ML LESS THAN 0.02 NG/ML Imaging Last Impressions Myocardial Perfusion Scan Nuc Med 07/13/17 0000 Signed Impressions: Service Date/Time: Thursday, July 13, 2017 08:31 - CONCLUSION: No evidence of fixed or reversible perfusion defects. No wall motion abnormality. Normal exam.. RISK CATEGORY: Low risk. Eula Anderson MD Chest X-Ray 07/12/17 1131 Signed Impressions: Service Date/Time: Wednesday, July 12, 2017 11:36 - CONCLUSION: Normal examination. Eula Anderson MD PE at Discharge GENERAL: This is a well-nourished, well-developed patient, in no apparent distress. Patient speaks in clear complete sentences. Patient is pleasant. HEENT: Head is atraumatic and normocephalic. Neck is supple without lymphadenopathy and trachea is midline. No JVD or carotid bruits. CARDIOVASCULAR: Regular rate and rhythm without murmurs, gallops, or rubs. RESPIRATORY: Clear to auscultation. Breath sounds equal bilaterally. No wheezes , rales, or rhonchi. Left chest wall is tender. No use of accessory muscles. GASTROINTESTINAL: Abdomen is nontender, nondistended. Abdomen soft. No obvious pulsatile mass or bruit. No CVA tenderness. Strong femoral pulses bilaterally. Normal bowel sounds in all quadrants. MUSCULOSKELETAL: Patient is moving upper and lower extremities freely. No calf tenderness or edema, no Homans sign. Strong pulses in upper and lower extremities. NEUROLOGICAL: Patient is alert and oriented. Cranial nerves 2-12 are grossly intact. No focal deficits and speech is clear. SKIN: No rash and turgor is normal. Pt update on day of discharge Feels better. No chest pain overnight. No palpitations. No lightheadedness overnight or when he walks today. Able to ambulate without any problems. Hospital Course Atypical chest pain: Patient has had first set of cardiac enzymes and EKGs.. Had abnormal stress test noted V tach while having stress test. Plan for lexiscan. Plan for 2D echo. 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 He also has been advised to longer use marijuana. Patient is stable at this time. Discharge patient ,echo and Lexiscan was normal. Cleared by cardiology for discharge. Patient to have her metoprolol discharged and to follow-up with cardiology Dr. Carpio as outpatient missile inspector. The patient is discharged in stable condition to home. Pt Condition on Discharge: Stable Discharge Disposition: Discharge Home Discharge Time: > 30 minutes Discharge Instructions DIET: Follow Instructions for: Heart Healthy Diet Activities you can perform: Regular-No Restrictions Follow up Referrals: Cardiology - 1 Week with Dru Moreno MD PCP Follow-up - 2-3 Days New Medications: Metoprolol Succinate ER 24 HR (Metoprolol Succinate ER 24 HR) 50 Mg Tab 50 MG PO DAILY for Blood Pressure Management, #30 TAB 0 Refills Elba Hebert MD Jul 14, 2017 08:10
--- NOTE | 2017-07-14 09:21 | PD.CARD.PN ---
Subjective Subjective Remarks No CP, dyspnea, palpitations, dizziness. Objective Medications Item Value Date Time Aspirin 325 mg 07/13/17 0900 (Aspirin) DAILY/PO 07/13/17 1023 Current Medications Medications (Trade) Dose Ordered Sig/Elena Route Start Time Stop Time Status Last Admin (NS Flush) 2 ml UNSCH PRN IVF 07/12/17 11:45 07/13/17 10:25 (Tylenol) 500 mg Q4H PRN PO 07/12/17 15:00 ([place] 7.5-325 Mg) 1 tab Q4H PRN PO 07/12/17 15:00 (Zofran Inj) 4 mg Q6H PRN IV PUSH 07/12/17 15:00 (Aspirin) 325 mg DAILY PO 07/13/17 09:00 07/13/17 10:23 Vital Signs / I&O Vital Signs Date Time Temp Pulse Resp B/P (MAP) Pulse Ox O2 Delivery O2 Flow Rate FiO2 07/14/17 07:49 98.0 83 20 123/70 (87) 96 07/13/17 21:26 98.6 73 18 130/72 (91) 99 07/13/17 20:24 21 07/13/17 16:31 97.4 75 16 138/80 (99) 07/13/17 16:23 64 07/13/17 13:27 98.0 75 14 132/86 (101) 98 07/13/17 12:15 74 I/O 07/13/17 07/13/17 07/13/17 07/14/17 07/14/17 07/14/17 07:00 15:00 23:00 07:00 15:00 23:00 Intake Total 360 ml 200 ml 1000 ml Balance 360 ml 200 ml 1000 ml Intake Oral 360 ml 200 ml IV Total 1000 ml # Voids 2 Physical Exam GENERAL: Well developed, well nourished. No acute distress. HEENT: Jugular venous pressure is normal. CHEST: Lungs clear to auscultation bilaterally. Unlabored respiratory effort. CARDIAC: Regular rate and rhythm without S3, S4, or murmur. ABDOMEN: Soft, nontender, no hepatosplenomegaly. Bowel sounds present. EXTREMITIES: No clubbing, cyanosis, or edema. Assessment and Plan Problem List: (1) Chest pain ICD Codes: R07.9 - Chest pain, unspecified Status: Chronic Plan: Stable overnight. No further atypical CP. Nuclear stress test normal. (2) Wide QRS ventricular tachycardia ICD Codes: I47.2 - Ventricular tachycardia Status: Acute Plan: Monitoring uneventful overnight. Patient without history of syncope. No murmur on exam. Echo pending. Recommend await echo. If echo normal, recommend discharge on metoprolol succinate 50 mg daily and outpatient f/u with Dr. Moreno. Code Status full code Discussed Condition With patient Problem Qualifiers (1) Chest pain: Qualified Codes: R07.9 - Chest pain, unspecified Bandar Kang MD Jul 14, 2017 09:21
[2017-07-14] MEDS ORDERED: METOPROLOL SUCCINATE 50 MG EXTENDED RELEASE TAB PO SCH (09:30)
[2017-07-14 10:58] VITALS: BP 132/72; PULSE 79; RESP 20; TEMP 98.1; O2SAT 95
[2017-07-14] MEDS: ASPIRIN 325 MG TAB PO SCH (12:59)
--- NOTE | 2017-07-14 13:26 | ECHRPT ---
Indication: cp CONCLUSIONS Normal left ventricular size. Estimated ejection fraction is 60-65% Mild mitral valve regurgitation. There is mild tricuspid valve regurgitation. The estimated pulmonary arterial pressure is 31 mmHg. BP: / HR: Rhythm: MEASUREMENTS (Male / Female) Normal Values Technical Quality:Good 2D ECHO LV Diastolic Diameter PLAX 4.1 cm 4.2 - 5.9 / 3.9 - 5.3 cm LV Systolic Diameter PLAX 2.9 cm IVS Diastolic Thickness 1.1 cm 0.6 - 1.0 / 0.6 - 0.9 cm LVPW Diastolic Thickness 1.1 cm 0.6 - 1.0 / 0.6 - 0.9 cm LV Relative Wall Thickness 0.5 RV Internal Dim ED PLAX 2.1 cm M-MODE Aortic Root Diameter MM 2.9 cm LA Systolic Diameter MM 3.3 cm LA Ao Ratio MM 1.1 AV Cusp Separation MM 1.9 cm DOPPLER Mitral E Point Velocity 93.8 cm/s Mitral A Point Velocity 75.5 cm/s Mitral E to A Ratio 1.2 LV E' Lateral Velocity 11.7 cm/s Mitral E to LV E' Lateral Ratio 8.0 LV E' Septal Velocity 10.2 cm/s Mitral E to LV E' Septal Ratio 9.2 TR Peak Velocity 229.0 cm/s TR Peak Gradient 21.0 mmHg Right Atrial Pressure 10.0 mmHg Pulmonary Artery Systolic Pressu 31.0 mmHg Right Ventricular Systolic Press 31.0 mmHg FINDINGS LEFT VENTRICLE Normal left ventricular size. The left ventricular systolic function is normal with an estimated ejection fraction in the range of 60-65%. RIGHT VENTRICLE Normal right ventricular size and systolic function. LEFT ATRIUM The left atrial size is normal. RIGHT ATRIUM The right atrial size is normal. ATRIAL SEPTUM Normal atrial septal thickness without atrial level shunting by limited color doppler interrogation. AORTA The aortic root and proximal ascending aorta are normal in size on limited imaging. MITRAL VALVE Structurally normal mitral valve. Mild mitral valve regurgitation. AORTIC VALVE Trileaflet aortic valve. No aortic valve stenosis or regurgitation. TRICUSPID VALVE Structurally normal tricuspid valve. There is mild tricuspid valve regurgitation. The estimated pulmonary arterial pressure is 31 mmHg. PULMONARY VALVE No pulmonary valve regurgitation or stenosis. VESSELS The inferior vena cava is normal in size. PERICARDIUM No pericardial effusion. Jay Chew MD, FACC (Electronically Signed) Final Date:14 July 2017 13:25
== END 2017-07-14 16:44 | disposition home or self-care (01) ==
LOC: NEPC 11:17 → NEDA 13:24 → NEPGCP 14:20
PROVIDERS: ADMIT Hospitalist; ATTEND Hospitalist
DX: I47.2 Ventricular tachycardia (principal); R10.9 Unspecified abdominal pain; F17.200 Nicotine dependence, unspecified, uncomplicated; F12.90 Cannabis use, unspecified, uncomplicated; F25.9 Schizoaffective disorder, unspecified; G89.29 Other chronic pain; R42 Dizziness and giddiness; R94.39 Abnormal result of other cardiovascular function study; R94.31 Abnormal electrocardiogram [ECG] [EKG]; M54.6 Pain in thoracic spine
CPT/HCPCS: 71045; 78452; 80053; 82550; 82552; 83690; 83735; 84443; 84484; 85025; 85610; 85730; 93005; 93017; 93306; 96360; 99285; A9502; G0378; J2785; J7030

== ENCOUNTER 2017-09-09 20:03 | Emergency (ER) | payer MEDICARE, OTHER ==
[~2017-09-09] VITALS: Ht 167.6 cm; Wt 80.0 kg
[~2017-09-09 20:03] MED LIST changes: -DICY10 PO; -HYDR50TA94 PO; +METO1TAB9 PO; -PROP20TA3 PO; -ZYPR20TA PO
[2017-09-09 20:12] VITALS: BP 148/72; PULSE 101; RESP 16; TEMP 99.6; O2SAT 98
[2017-09-09] MEDS ORDERED: diphenhydrAMINE HCL 50 MG/ML VIAL IV PUSH ONE (20:30)
[2017-09-09] MEDS ORDERED: METOCLOPRAMIDE HCL 10 MG/2 ML VIAL IV PUSH ONE (20:30)
[2017-09-09] MEDS ORDERED: SODIUM CHLOR 0.9% 1000 ML INJ 1,000 ML IV ONE ×2 (20:30)
[2017-09-09] MEDS ORDERED: HYOSCYAMINE 0.125 MG TAB PO ONE (20:30)
[2017-09-09 20:36] VITALS: RESP 18; O2SAT 99
[2017-09-09] MEDS ORDERED: ZIPR20 PO (20:36)
--- NOTE | 2017-09-09 20:41 | PD ---
HPI Chief Complaint: Abdominal Pain Time Seen by Provider: 20:19 Travel History International Travel<30 days: No Contact w/Intl Traveler<30days: No Traveled to known affect area: No History of Present Illness HPI 32-year-old black male presents emergency department with complaints of abdominal cramping and diarrhea. He states that he thinks he may have eaten something bad. He woke up late last night with abdominal cramping followed by multiple episodes of diarrhea. He states now he is just having watery stools. Patient has felt hot but he has not documented any fevers. Positive nausea but no vomiting. No dysuria or frequency. Symptoms are moderate. Cramping is intermittent. No alleviating symptoms. PFSH Past Medical History Narrative Medical Anxiety, depression, schizophrenia, hypercholesterolemia Anxiety: Yes Depression: Yes Cardiovascular Problems: Yes (heart murmur) High Cholesterol: Yes Diminished Hearing: No Psychiatric: Yes Immunizations Current: Yes Schizophrenia: Yes (paranoid) Tetanus Vaccination: Unknown Influenza Vaccination: No Past Surgical History Surgical History: No Previous Surgery Social History Alcohol Use: Yes (ocasionally) Tobacco Use: No Substance Use: Yes (marijuana) Allergies-Medications (Allergen,Severity, Reaction): Coded Allergies: *MDRO Multi-Drug Resistant Organism (Verified Allergy, Unknown, 09/09/17) MRSA Reported Meds & Prescriptions Reported Meds & Active Scripts Active Levsin-SL (Hyoscyamine Sulfate) 0.125 Mg Subl 0.25 Mg SL Q6H 2 Days Zofran Odt (Ondansetron Odt) 4 Mg Tab 4 Mg SL Q6HR PRN Reported Geodon (Ziprasidone) 20 Mg Cap 20 Mg PO DAILY Review of Systems General / Constitutional: Positive: Fever Eyes: No: Visual changes HENT: No: Headaches Cardiovascular: No: Chest Pain or Discomfort Respiratory: No: Cough, Shortness of Breath Gastrointestinal: Positive: Nausea, Diarrhea, Abdominal Pain, No: Vomiting Genitourinary: No: Dysuria, Hematuria Musculoskeletal: No: Pain Skin: No Rash Neurologic: No: Weakness Psychiatric: No: Depression Endocrine: No: Polydipsia Hematologic/Lymphatic: No: Easy Bruising Physical Exam Narrative GENERAL: Well-developed, well-nourished in no apparent distress. Nontoxic appearing. HEAD: Normocephalic, atraumatic. EYES: Pupils equal round and reactive. Extraocular motions intact. No scleral icterus. No injection or drainage. ENT: Nose clear. Throat without erythema, tonsillar hypertrophy or exudate. Uvula midline. Airway patent. NECK: Trachea midline. Supple, nontender, moves head freely. No central bony tenderness or spasm. CARDIOVASCULAR: Regular rate and rhythm without murmurs, gallops, or rubs. RESPIRATORY: Clear to auscultation. Breath sounds equal bilaterally. No wheezes , rales, or rhonchi. GASTROINTESTINAL: Abdomen soft, non-mild diffuse tenderness to deep palpation tender, nondistended. No hepato-splenomegaly, or palpable masses. No guarding. No rebound. EXTREMITIES: No clubbing, cyanosis, or edema. No joint tenderness. BACK: Nontender without deformity. No flank tenderness. NEUROLOGICAL: Awake, alert and oriented x 3 .Cranial nerves grossly intact. Motor and sensory grossly within normal limits. Normal speech. Data Data Last Documented VS Vital Signs Date Time Temp Pulse Resp B/P (MAP) Pulse Ox O2 Delivery O2 Flow Rate FiO2 09/09/17 21:53 88 16 124/64 (84) 98 Room Air 09/09/17 20:12 99.6 Orders Orders Complete Blood Count With Diff (09/09/17 20:26) Comprehensive Metabolic Panel (09/09/17 20:26) Urinalysis - C+S If Indicated (09/09/17 20:26) Iv Access Insert/Monitor (09/09/17 20:26) Ecg Monitoring (09/09/17 20:26) Oximetry (09/09/17 20:26) Sodium Chlor 0.9% 1000 Ml Inj (Ns 1000 M (09/09/17 20:30) Sodium Chlor 0.9% 1000 Ml Inj (Ns 1000 M (09/09/17 20:30) Diphenhydramine Inj (Benadryl Inj) (09/09/17 20:30) Metoclopramide Inj (Reglan Inj) (09/09/17 20:30) Hyoscyamine (Levsin) (09/09/17 20:30) Enteric Path (Stool) (09/09/17 23:28) Labs Laboratory Tests Test 09/09/17 20:00 09/09/17 20:45 Urine Color LIGHT-YELLOW Urine Turbidity CLEAR Urine pH 5.5 Urine Specific [place] 1.011 Urine Protein TRACE mg/dL Urine Glucose (UA) NEG mg/dL Urine Ketones NEG mg/dL Urine Occult Blood NEG Urine Nitrite NEG Urine Bilirubin NEG Urine Urobilinogen LESS THAN 2.0 MG/DL Urine Leukocyte Esterase NEG Urine RBC LESS THAN 1 /hpf Urine WBC 1 /hpf Urine Hyaline Casts 11 /lpf Urine Mucus FEW /lpf Microscopic Urinalysis Comment CULT NOT INDICATED White Blood Count 11.9 TH/MM3 Red Blood Count 5.16 MIL/MM3 Hemoglobin 15.6 GM/DL Hematocrit 44.8 % Mean Corpuscular Volume 86.9 FL Mean Corpuscular Hemoglobin 30.3 PG Mean Corpuscular Hemoglobin Concent 34.9 % Red Cell Distribution Width 13.0 % Platelet Count 235 TH/MM3 Mean Platelet Volume 8.5 FL Neutrophils (%) (Auto) 78.6 % Lymphocytes (%) (Auto) 12.4 % Monocytes (%) (Auto) 8.8 % Eosinophils (%) (Auto) 0.0 % Basophils (%) (Auto) 0.2 % Neutrophils # (Auto) 9.3 TH/MM3 Lymphocytes # (Auto) 1.5 TH/MM3 Monocytes # (Auto) 1.0 TH/MM3 Eosinophils # (Auto) 0.0 TH/MM3 Basophils # (Auto) 0.0 TH/MM3 CBC Comment DIFF FINAL Differential Comment Blood Urea Nitrogen 9 MG/DL Creatinine 1.20 MG/DL Random Glucose 113 MG/DL Total Protein 8.7 GM/DL Albumin 4.0 GM/DL Calcium Level 9.9 MG/DL Alkaline Phosphatase 104 U/L Aspartate Amino Transf (AST/SGOT) 20 U/L Alanine Aminotransferase (ALT/SGPT) 34 U/L Total Bilirubin 0.9 MG/DL Sodium Level 137 MEQ/L Potassium Level 4.3 MEQ/L Chloride Level 104 MEQ/L Carbon Dioxide Level 24.6 MEQ/L Anion Gap 8 MEQ/L Estimat Glomerular Filtration Rate 84 ML/MIN MDM Medical Decision Making Medical Screen Exam Complete: Yes Emergency Medical Condition: Yes Medical Record Reviewed: Yes Differential Diagnosis MDM: High Differential diagnoses: Acute appendicitis, infectious diarrhea, viral gastroenteritis, electrolyte abnormality, dehydration, drug-seeking, malingering Narrative Course IV access is obtained. Patient was given 2 L of normal saline. CBC, chemistry , Benadryl 50 million g IV, Reglan 10 mg IV and Levsin 0.25 sublingual The patient has been reexamined. He states that his nausea is resolved he still has some abdominal cramping and diarrhea. He states that he does not have any pain. Patient has no lower abdominal pain. No pain over the right lower quadrant. No guarding or rebound. I do not think this is appendicitis. The patient has received a total 2 L of normal saline. He has drank a bottle of Gatorade without vomiting. The patient will be discharged and rechecked in 24 hours. A stool culture for enteric pathogens has been collected. This is abdominal cramping, diarrhea Diagnosis Primary Impression: Abdominal cramping Additional Impression: Diarrhea Patient Instructions: General Instructions Additional Instructions: Rest. Clear liquids for 24 hours. Levsin for abdominal cramping and diarrhea. Zofran for nausea. Recheck in the ER in 24 hours. Return to the ER sooner if worsening symptoms. Med/Other Pt SpecificInfo: Prescription(s) given Scripts Hyoscyamine Odt (Levsin-SL) 0.125 Mg Subl 0.25 MG SL Q6H for Gastrointestinal disorders for 2 Days, TAB.SL 0 Refills Prov: Garret Chang MD 09/09/17 Ondansetron Odt (Zofran Odt) 4 Mg Tab 4 MG SL Q6HR Y for Nausea/Vomiting, #4 TAB 0 Refills Prov: Garret Chang MD 09/09/17 Disposition: 01 DISCHARGE HOME Condition: Stable Brennen Winston September 09, 2017 20:41
[2017-09-09 21:05] LABS: AUTOMATED NEUTROPHIL # 9.3 TH/MM3 (1.8-7.7); BASOPHIL % 0.2 % (0.0-2.0); HEMATOCRIT 44.8 % (39.0-51.0); HEMOGLOBIN 15.6 GM/DL (13.0-17.0); LYMPH % 12.4 % (9.0-44.0); LYMPHOCYTE # 1.5 TH/MM3 (1.0-4.8); MEAN CELL VOLUME 86.9 FL (80.0-100.0); MEAN CORPUSCULAR HEMOGLOBIN 30.3 PG (27.0-34.0); MEAN CORPUSCULAR HGB CONC 34.9 % (32.0-36.0); MEAN PLATELET VOLUME 8.5 FL (7.0-11.0); MONO % 8.8 % (0.0-8.0); NEUT % 78.6 % (16.0-70.0); PLATELET COUNT 235 TH/MM3 (150-450); RED BLOOD COUNT 5.16 MIL/MM3 (4.50-5.90); WHITE BLOOD COUNT 11.9 TH/MM3 (4.0-11.0)
[2017-09-09 21:20] LABS: AST (GOT) 20 U/L (15-37); BICARBONATE 24.6 MEQ/L (21.0-32.0); BLOOD UREA NITROGEN 9 MG/DL (7-18); CALCIUM 9.9 MG/DL (8.5-10.1); CHLORIDE 104 MEQ/L (98-107); GLOMERULAR FILTRATION RATE 84 ML/MIN (>89); GLUCOSE,RANDOM 113 MG/DL (74-106); SODIUM (NA) 137 MEQ/L (136-145)
[2017-09-09 21:24] LABS: ALKALINE PHOSPHATASE 104 U/L (45-117); ALT (GPT) 34 U/L (12-78); TOTAL BILIRUBIN ADULT 0.9 MG/DL (0.2-1.0); TOTAL PROTEIN 8.7 GM/DL (6.4-8.2)
[2017-09-09 21:53] VITALS: BP 124/64; PULSE 88; RESP 16; O2SAT 98
[2017-09-09 23:02] LABS: BILIRUBIN, URINE NEG (NEG); BLOOD, URINE NEG (NEG); GLUCOSE,URINE NEG (NEG); HYALINE CAST, URINE 11 /lpf (RARE); KETONE, URINE NEG (NEG); MUCUS URINE FEW /lpf (OCC); NITRITE,URINE NEG (NEG); PH, URINE 5.5 (5.0-8.5); URINE COLOR LIGHT-YELLOW (YELLW/STRAW); URINE LEUKOCYTE ESTERASE NEG (NEG)
[2017-09-09] MEDS ORDERED: LEVS0.124 SL (23:32)
[2017-09-09] MEDS ORDERED: ZOFR4TAB3 SL (23:32)
== END 2017-09-10 01:40 | disposition home or self-care (01) ==
LOC: NEPD 20:03
DX: R10.9 Unspecified abdominal pain (principal); R19.7 Diarrhea, unspecified
CPT/HCPCS: 80053; 81001; 85025; 87506; 96361; 96374; 96375; 99284; J1200; J2765; J7030